=== PATIENT | female | born 1940 ===

== ENCOUNTER 2017-05-08 07:27 | Observation (INO) | payer MEDICARE ==
[2017-05-08] MEDS ORDERED: Morphine 4 MG/ML VIAL ONE (08:08)
[2017-05-08 08:15] LABS: BASO % 0.5 % (0.0-2.0); EOS # 0.2 K/uL (0.0-0.7); EOS % 3.4 % (0.0-4.0); HEMATOCRIT 35.3 % (34.0-47.0); LYMPH % 27.5 % (20.0-40.0); MEAN CELL VOLUME 91.6 fL (81.0-99.0); MEAN CORPUSCULAR HEMOGLOBIN 30.1 pg (27.0-31.0); MEAN CORPUSCULAR HGB CONC 32.9 g/dL (33.0-37.0); MEAN PLATELET VOLUME 8.1 fL (7.2-11.7); MONO # 0.4 K/uL (0.0-0.8); MONO % 5.5 % (0.0-10.0); RED CELL DISTRIBUTION WIDTH 13.5 % (11.5-14.5); WHITE BLOOD COUNT 7.2 K/uL (4.8-10.8)
[2017-05-08 08:28] LABS: PARTIAL THROMBOPLASTIN TIME 30 SECONDS (21-34)
[2017-05-08 08:30] LABS: CHLORIDE 102 mmol/L (98-107); SODIUM 139 mmol/L (132-148)
[2017-05-08 08:31] LABS: POTASSIUM 3.6 mmol/L (3.6-5.2)
[2017-05-08 08:33] LABS: ALB/GLOB RATIO 1.2 (1.0-2.1); ALKALINE PHOSPHATASE 126 U/L (38-126); ALT/SGPT 14 U/L (9-52); AST/SGOT 18 U/L (14-36); BILIRUBIN,TOTAL 0.9 mg/dL (0.2-1.3); BLOOD UREA NITROGEN 20 mg/dL (7-17); CALCIUM 8.6 mg/dl (8.6-10.4); CARBON DIOXIDE 26 mmol/L (22-30); GFR AFRICAN-AMERICAN > 60; GLUCOSE,RANDOM 92 mg/dL (65-105); TOTAL PROTEIN 6.8 g/dL (6.3-8.3)
--- NOTE | 2017-05-08 09:05 | C.PDOC ---
History Of Present Illness 77 yr old female presents to the ER with complaints of chest pain, SOB and sensations of choking intermittently for the past 1 week. Patient states the SOB started few days ago. Patient is accompanied by [id number], who states about a 1 week ago the patient was chocking on food when someone did the heimlich maneuver and since then the patient has developed anterior chest pain, pain with breathing and can't sleep due to the pain. Patient denies fever, chills, nausea, vomiting, abdominal pain, neck pain, back pain, weakness or numbness. Time Seen by Provider: 05/08/17 07:50 Chief Complaint (Nursing): Chest Pain History Per: Patient, Family (Daughter In Law ) History/Exam Limitations: no limitations Onset/Duration Of Symptoms: Days (1 week) Past Medical History Reviewed: Historical Data, Nursing Documentation, Vital Signs Vital Signs: Last Vital Signs Temp 98.1 F 05/08/17 16:01 Pulse 62 05/08/17 16:01 Resp 20 05/08/17 16:01 BP 131/78 05/08/17 16:01 Pulse Ox 95 05/08/17 16:01 - Medical History PMH: HTN, Hypothyroidism Family History: States: No Known Family Hx - Social History Hx Alcohol Use: Yes Hx Substance Use: No - Immunization History Hx Tetanus Toxoid Vaccination: No Hx Influenza Vaccination: No Hx Pneumococcal Vaccination: No Review Of Systems Except As Marked, All Systems Reviewed And Found Negative. Constitutional: Positive for: Other ((+) Choking sensation ). Negative for: Fever, Chills Cardiovascular: Positive for: Chest Pain Respiratory: Positive for: Shortness of Breath Gastrointestinal: Negative for: Nausea, Vomiting, Abdominal Pain Musculoskeletal: Negative for: Neck Pain, Back Pain Neurological: Negative for: Weakness, Numbness Physical Exam - Physical Exam Appears: Well, Non-toxic, No Acute Distress Skin: Warm, Dry, No Rash Head: Atraumatic, Normacephalic Eye(s): bilateral: PERRL, EOMI Throat: Normal, No Erythema, No Exudate, No Drooling Neck: Normal, Normal ROM, Supple Chest: Symmetrical, Tenderness (Mildly tender ) Cardiovascular: Rhythm Regular, No Murmur Respiratory: Decreased Breath Sounds (Bilateral bases ), No Rales, No Wheezing Gastrointestinal/Abdominal: Normal Exam, Soft, No Tenderness, No Guarding, No Rebound Extremity: Normal ROM, No Swelling Neurological/Psych: Oriented x3, Normal Speech, Normal Motor ED Course And Treatment - Laboratory Results Result Diagrams: 05/08/17 08:08 05/08/17 08:08 ECG: Interpreted By Me, Viewed By Me ECG Rhythm: Sinus Rhythm ECG Interpretation: Normal Rate From EC (BPM) O2 Sat by Pulse Oximetry: 97 (RA) Pulse Ox Interpretation: Normal - Other Rad CXR X-Ray: Viewed By Me, Read By Radiologist Interpretation: PROCEDURE: CHEST RADIOGRAPH, 1 VIEW. HISTORY: SOB, CP. COMPARISON: None available. FINDINGS: LUNGS: Mild venous congestion. Patchy bibasilar airspace opacities. Upper lobe granulomatous changes. PLEURA: As above. CARDIOVASCULAR: Tortuous ectatic aorta. Calcification at the aortic knob. Mild cardiomegaly. OSSEOUS STRUCTURES: No significant abnormalities. VISUALIZED UPPER ABDOMEN: Normal. OTHER FINDINGS: None. IMPRESSION: Mild venous congestion. Patchy bibasilar airspace opacities. Upper lobe granulomatous changes. Progress Note: Case was d/w pt's PMD Jeaneth Queen who requested to put patient to tele for observation on the Hospitalist service. Case was d/w Hospitalist who accepted patient to tele for observation. 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 - Scribe Statement The provider has reviewed the documentation as recorded by the Scribe Madina Brizuela All medical record entries made by the Scribe were at my direction and personally dictated by me. I have reviewed the chart and agree that the record accurately reflects my personal performance of the history, physical exam, medical decision making, and the department course for this patient. I have also personally directed, reviewed, and agree with the discharge instructions and disposition. Decision To Admit - Pt Status Changed To: Hospital Disposition Of: Observation - . Bed Request Type: Telemetry Admitting Physician: Christina Sofia Patient Diagnosis: Chest pain, SOB (shortness of breath)
[2017-05-08 09:20] LABS: RBC URINE < 1 /hpf (0-3); URINE BACTERIA RARE (<OCC); URINE BILIRUBIN NEGATIVE (NEGATIVE); URINE BLOOD NEGATIVE (NEGATIVE); URINE COLOR Straw (YELLOW); URINE GLUCOSE (UA) NORMAL (Normal); URINE KETONE NEGATIVE (NEGATIVE); URINE LEUKOCYTE ESTERASE 2+ Leu/uL (Negative); URINE PROTEIN NEGATIVE (NEGATIVE); URINE UROBILINOGEN NORMAL mg/dL (0.2-1.0)
[2017-05-08 09:22] LABS: WBC URINE 5 /hpf (0-5)
--- NOTE | 2017-05-08 09:36 | RAD ---
PROCEDURE: CHEST RADIOGRAPH, 1 VIEW HISTORY: SOB, CP COMPARISON: None available. FINDINGS: LUNGS: Mild venous congestion. Patchy bibasilar airspace opacities. Upper lobe granulomatous changes. PLEURA: As above. CARDIOVASCULAR: Tortuous ectatic aorta. Calcification at the aortic knob. Mild cardiomegaly. OSSEOUS STRUCTURES: No significant abnormalities. VISUALIZED UPPER ABDOMEN: Normal. OTHER FINDINGS: None. IMPRESSION: Mild venous congestion. Patchy bibasilar airspace opacities. Upper lobe granulomatous changes.
--- NOTE | 2017-05-08 11:45 | CP.PCM.HP ---
<Kennedi Hartley - Last Filed: 05/08/17 12:21> History of Present Illness - History of Present Illness History of Present Illness: CC: "my ribs hurt" HPI: Patient is a 77 year old female with PMHx of HTN, hypothyroidism, and unknown pulmonary disease presenting for rib pain, chest pain and aspiration. All translation is through patient's [id number]. Patient says she began choking on water on Friday. She kept coughing after swallowing the water. Her son-in-law gave her the heimlich. Ever since then patient has had difficulty swallowing water and also rice. Patient has no trouble swallowing other liquids and other foods. Since then patient has been coughing up white to yellowish phlegm frequently. Patient's [id number] says the patient has had subjective fever all week. Patient says she has had low rib pain since getting the heimlich maneuver. Patient's daughter in law gave her Naprosyn 500mg PO on Friday which did help the pain but patient did not want to continue taking it. Patient says she began having slight headache, difficulty hearing and left ear pain over the weekend. Patient also reports slight headache and blurry vision since Friday. Patient began experience sternal chest pain radiating into both arms yesterday while walking. Pain is associated with SOB. Patient denies diaphoresis and heart burn. Patient also reports not having a bowel movement for 3 days and associated slight back pain. Patient denies dysuria, rashes, bleeding. Patient was supposed to see an ENT doctor at 1pm today. PMD: Dr. Foley Allergies: NKDA PMHx: HTN, hypothyroidism, unknown lung problem Medications: inhaler of unknown name,levothyroxine 88mcg PO daily, losartan 50mg PO daily PSHx: umbilical hernia repair one year ago, R leg varicose vein surgery 1 year ago, cholecystectomy Family History: denies CAD, stroke, DM, hyperlipidemia; Father - Lung CA Social Hx: Denies smoking, drinks 1 beer at parties, denies illicit drug use, lives with daughter Present on Admission - Present on Admission Any Indicators Present on Admission: No History of DVT/PE: No History of Uncontrolled Diabetes: No Review of Systems - Constitutional Constitutional: Fever, Weakness. absent: Chills - EENT Eyes: Blurred Vision Ears: Ear Pain Nose/Mouth/Throat: Post Nasal Drip - Cardiovascular Cardiovascular: Chest Pain, Dyspnea, Pain Radiating to Arm/Neck/Jaw, Radiating Pain. absent: Diaphoresis, Lightheadedness, Palpitations, Pedal Edema, Rapid Heart Rate - Respiratory Respiratory: Cough, Dyspnea, Excessive Mucous Production, Change in Mucous Color , Pain with Coughing. absent: Wheezing, Snoring - Gastrointestinal Gastrointestinal: Constipation. absent: Abdominal Pain, Diarrhea, Heartburn, Nausea, Vomiting - Genitourinary Genitourinary: absent: Difficulty Urinating, Dysuria - Musculoskeletal Musculoskeletal: Back Pain - Integumentary Integumentary: absent: Rash - Neurological Neurological: Headaches. absent: Dizziness - Endocrine Endocrine: absent: Fatigue, Palpitations - Hematologic/Lymphatic Hematologic: absent: Easy Bleeding, Easy Bruising Past Patient History - Past Medical History & Family History Past Medical History?: Yes Pertinent Family History: denies CAD, stroke, DM, hyperlipidemia; Father - Lung CA - Past Social History Smoking Status: Never Smoked Alcohol: Occasional Drugs: Denies Home Situation {Lives}: With Family - CARDIAC Hx Hypertension: Yes - ENDOCRINE/METABOLIC Hx Hypothyroidism: Yes - PSYCHIATRIC Hx Substance Use: No - SURGICAL HISTORY Hx Surgeries: Yes Hx Herniorrhaphy: Yes (Umbilical) Other/Comment: rt. leg varicose vein surgery yesterday - ANESTHESIA Hx Anesthesia: Yes Hx Anesthesia Reactions: No Meds Allergies/Adverse Reactions: Allergies Allergy/AdvReac Type Severity Reaction Status Date / Time No Known Allergies Allergy Verified 05/08/17 07:44 Physical Exam - Constitutional Appears: Non-toxic, No Acute Distress - Head Exam Head Exam: NORMAL INSPECTION - Eye Exam Eye Exam: EOMI - ENT Exam ENT Exam: Mucous Membranes Moist Additional comments: right tonsil larger than left tonsil - Neck Exam Neck exam: Negative for: Lymphadenopathy - Respiratory Exam Respiratory Exam: Chest Wall Tenderness. absent: Accessory Muscle Use, Rales, Rhonchi, Wheezes, Respiratory Distress Additional comments: bibasilar coarse breath sounds - Cardiovascular Exam Cardiovascular Exam: REGULAR RHYTHM, +S1, +S2. absent: Gallop, Rubs, Systolic Murmur - GI/Abdominal Exam GI & Abdominal Exam: Normal Bowel Sounds, Soft. absent: Distended, Firm, Tenderness - Extremities Exam Extremities exam: Positive for: normal capillary refill, pedal pulses present. Negative for: pedal edema - Neurological Exam Neurological exam: Alert, Oriented x3 - Psychiatric Exam Psychiatric exam: Normal Affect, Normal Mood - Skin Skin Exam: Normal Color, Warm Results - Vital Signs Recent Vital Signs: Last Vital Signs Temp 97.8 F 05/08/17 07:41 Pulse 54 L 05/08/17 10:24 Resp 16 05/08/17 10:24 BP 122/93 H 05/08/17 10:24 Pulse Ox 97 05/08/17 10:47 - Labs Result Diagrams: 05/08/17 08:08 05/08/17 08:08 Labs: Laboratory Results - last 24 hr 05/08/17 05/08/17 05/08/17 08:08 08:08 08:08 WBC 7.2 RBC 3.86 Hgb 11.6 Hct 35.3 MCV 91.6 MCH 30.1 MCHC 32.9 L RDW 13.5 Plt Count 268 MPV 8.1 Neut % (Auto) 63.1 Lymph % (Auto) 27.5 [place] % (Auto) 5.5 Eos % (Auto) 3.4 Baso % (Auto) 0.5 Neut # 4.5 Lymph # 2.0 [place] # 0.4 Eos # 0.2 Baso # 0.0 PT 10.7 INR 1.0 APTT 30 D-Dimer, Quantitative < 200 Sodium 139 Potassium 3.6 Chloride 102 Carbon Dioxide 26 Anion Gap 14 BUN 20 H Creatinine 0.8 Est GFR ( Amer) > 60 Est GFR (Non-Af Amer) > 60 Random Glucose 92 Calcium 8.6 Total Bilirubin 0.9 AST 18 ALT 14 Alkaline Phosphatase 126 D Total Creatine Kinase 48 CK-MB (Mass) 0.77 Troponin I < 0.0120 Total Protein 6.8 Albumin 3.7 Globulin 3.0 Albumin/Globulin Ratio 1.2 Urine Color Urine Clarity Urine pH Ur Specific [place] Urine Protein Urine Glucose (UA) Urine Ketones Urine Blood Urine Nitrate Urine Bilirubin Urine Urobilinogen Ur Leukocyte Esterase Urine WBC (Auto) Urine RBC (Auto) Ur Squamous Epith Cells Urine Bacteria 05/08/17 09:11 WBC RBC Hgb Hct MCV MCH MCHC RDW Plt Count MPV Neut % (Auto) Lymph % (Auto) [place] % (Auto) Eos % (Auto) Baso % (Auto) Neut # Lymph # [place] # Eos # Baso # PT INR APTT D-Dimer, Quantitative Sodium Potassium Chloride Carbon Dioxide Anion Gap BUN Creatinine Est GFR ( Amer) Est GFR (Non-Af Amer) Random Glucose Calcium Total Bilirubin AST ALT Alkaline Phosphatase Total Creatine Kinase CK-MB (Mass) Troponin I Total Protein Albumin Globulin Albumin/Globulin Ratio Urine Color Straw Urine Clarity Clear Urine pH 7.0 Ur Specific [place] 1.006 Urine Protein Negative Urine Glucose (UA) Normal Urine Ketones Negative Urine Blood Negative Urine Nitrate Negative Urine Bilirubin Negative Urine Urobilinogen Normal Ur Leukocyte Esterase 2+ H Urine WBC (Auto) 5 Urine RBC (Auto) < 1 Ur Squamous Epith Cells 1 Urine Bacteria Rare Assessment & Plan - Assessment and Plan (Free Text) Assessment: Chest Pain IVA neg x1 F/U ROMIs with EKGs at 3pm and 9pm ASA 81mg PO daily Crestor 10mg PO HS F/U lipid panel, HgbA1C, TSH Costochondritis Toradol 30mg IVP once Toradol 15mg IVP Q6H PRN pain Aspiration Swallow evaluation Aspiration precautions CT of soft tissues of neck ENT consult - Dr. Valles - f/u recs Pneumonia likely aspiration pneumonia CXR - mild venous congestion; patchy bibasilar air space opacities; upper lobe granulomatous changes F/U mycoplasma IgM, Legionella Ag, and S. Pneumo Ag Zosyn 3.375 gm IVPB Q6 Monitor for fever Monitor CBC Constipation Milk of Magnesia once Colace 100mg PO BID HTN Continue home Losartan 50mg PO daily Hypothyroidism Continue home levothyroxine 88mcg PO daily F/U TSH Asthma? Duonebs INH RQ6 PRN SOB F/U with [id number] about name of inhaler Prophylaxis Protonix 40mg PO daily Heparin 5000U SC Q8 SCDs <Chris Kaufman M - Last Filed: 05/08/17 15:23> Results - Vital Signs Recent Vital Signs: Last Vital Signs Temp 98.1 F 05/08/17 12:29 Pulse 60 05/08/17 12:29 Resp 18 05/08/17 12:29 BP 169/73 H 05/08/17 12:29 Pulse Ox 98 05/08/17 12:29 - Labs Result Diagrams: 05/08/17 08:08 05/08/17 08:08 Attending/Attestation - Attestation I have personally seen and examined this patient.: Yes I have fully participated in the care of the patient.: Yes I have reviewed all pertinent clinical information: Yes Notes (Text): 05/08/17 15:21 Patient was seen and examined at bedside with the resident at the time of admission We will start treatment for pneumonia. We will also request ENT evaluation for difficulty swallowing and enlarged tonsils We will obtain a CT scan of soft tissue of the neck I discussed the plan of care with the resident and agree with the above history and physical and assessment/plan by the resident.
[2017-05-08] MEDS ORDERED: Magnesium Hydroxide Susp 30 ml UD PO ONE (12:30)
[2017-05-08] MEDS ORDERED: Albuterol-Ipratrop 3 mg / 0.5 (3 ml) UD INH PRN (12:32)
[2017-05-08] MEDS: Pantoprazole 40 mg EC Tab PO SCH (14:17)
[2017-05-08] MEDS: Piperacillin/Tazobact 3.375 GM in Sodium Chloride 100 ML IVPB SCH ×3 (14:20→23:53)
--- NOTE | 2017-05-08 23:50 | OP ---
PROCEDURE DATE: 05/08/2017 Dysphagia. PROCEDURE: Flexible laryngoscopy. SIGNIFICANT FINDINGS: Arytenoid erythema. DESCRIPTION OF PROCEDURE: The patient was placed in a seated position. Flexible laryngoscope was in serted into the nasal cavity, passed through the nasopharynx, oropharynx, hypopharynx. The pharyngea l damico, base of tongue, vallecula, epiglottis, AE folds, false cords, true cords, piriform sinuses, arytenoids were brought into view. Arytenoid erythema was noted on both sides, mild in intensity. S cope was removed. The patient tolerated the procedure well. The patient assessed as having gastroes ophageal reflux disease. I recommend a gastroenterology consultation. Jacky Valles MD cc: [id number] TT: 05/08/2017 23:49:52 wv
[2017-05-09] MEDS: Piperacillin/Tazobact 3.375 GM in Sodium Chloride 100 ML IVPB SCH ×2 (05:45→12:21)
[2017-05-09] MEDS ORDERED: Levothyroxine 88 MCG TAB PO SCH (06:30)
[2017-05-09 07:36] LABS: BASO % 0.6 % (0.0-2.0); EOS # 0.4 K/uL (0.0-0.7); HEMATOCRIT 37.9 % (34.0-47.0); LYMPH # 1.6 K/uL (1.0-4.3); LYMPH % 22.4 % (20.0-40.0); MEAN CELL VOLUME 92.8 fL (81.0-99.0); MEAN CORPUSCULAR HEMOGLOBIN 30.2 pg (27.0-31.0); MEAN CORPUSCULAR HGB CONC 32.5 g/dL (33.0-37.0); MEAN PLATELET VOLUME 8.7 fL (7.2-11.7); MONO # 0.4 K/uL (0.0-0.8); MONO % 5.9 % (0.0-10.0); RED CELL DISTRIBUTION WIDTH 13.6 % (11.5-14.5); WHITE BLOOD COUNT 7.3 K/uL (4.8-10.8)
[2017-05-09 07:52] LABS: CHLORIDE 102 mmol/L (98-107)
[2017-05-09 07:53] LABS: POTASSIUM 3.8 mmol/L (3.6-5.2); SODIUM 140 mmol/L (132-148)
[2017-05-09 07:55] LABS: BILIRUBIN,TOTAL 0.6 mg/dL (0.2-1.3); CARBON DIOXIDE 28 mmol/L (22-30); CHOLESTEROL 198 mg/dL (0-199); GFR AFRICAN-AMERICAN > 60
[2017-05-09 07:56] LABS: ALKALINE PHOSPHATASE 128 U/L (38-126); ALT/SGPT 19 U/L (9-52); AST/SGOT 19 U/L (14-36); BLOOD UREA NITROGEN 19 mg/dL (7-17); CALCIUM 8.4 mg/dl (8.6-10.4); GLUCOSE,RANDOM 93 mg/dL (65-105); TOTAL PROTEIN 6.8 g/dL (6.3-8.3)
[2017-05-09 08:23] LABS: THYROID STIMULATING HORMONE 0.33 mIU/L (0.46-4.68)
--- NOTE | 2017-05-09 10:11 | CT ---
PROCEDURE: CT scan of the neck dated 05/08/2017. COMPARISON: No prior study available for comparison TECHNIQUE: Radiation dose: DLP 353.33 mGy-cm This CT exam was performed using one or more of the following dose reduction techniques: Automated exposure control, adjustment of the mA and/or kV according to patient size, and/or use of iterative reconstruction technique. FINDINGS: Current study reveals no large cervical masses or collections. There are multiple small nonspecific bilateral cervical lymph nodes. None of these lymph nodes appear pathologically enlarged. The visualized parotid and submandibular glands appear grossly unremarkable without masses collections or calcifications. No evidence of abnormal calcifications within the distribution of the expected distribution of the parotid or submandibular ducts. The thyroid gland is diminutive in overall size/volume. Note that the some crossing streak and beam hardening artifact also partially obscures the thyroid gland. Evaluation of the cervical arterial vasculature slightly limited due to the lack of circulating intravenous contrast material. Some very minor calcified atherosclerotic plaque seen along both carotid bifurcations without evidence to suggest hemodynamically significant stenosis. The palatine tonsils are somewhat prominent with tiny calcification in the right peritonsillar region likely postinflammatory. No evidence of peritonsillar abscess. There is some minor asymmetry of the vallecula which is likely due to some encroachment of lingual tonsils and probably some residual/retained secretion in the right aspect of the vallecula. There is also a tiny calcification within the right aspect of the vallecular likely postinflammatory in nature as well. Mild asymmetry of the pyriform sinuses and aryepiglottic folds. The left pyriform sinus is smaller than the right side. This could also be due to some residual and or retained secretion. Possibility of mucosal lesion cannot be excluded. Direct visualization may be prudent for further evaluation. The central airways are midline. No endoluminal lesions are identified. Lung apices are clear. There are multiple on all with small rounded lucencies scattered throughout the cervical spine nonspecific though could represent areas of demineralization. Clinical correlation recommended as the possibility of an infiltrative marrow disease process the including but not limited to multiple myeloma should be excluded. Assess slight straightening of the normal cervical lordosis which could be due to patient positioning gantry. No 3 minimal anterior subluxation C7 over T1. Impression: No evidence of peritonsillar abscess though there is slight prominence of the palatine tonsils. Few tiny calcifications seen in the right palatine tonsil and the region of the right lingular tonsil region likely postinflammatory. Mild asymmetry of the lingula which could be due to encroachment of lingual tonsils on the right side as well as on some residual and or retained secretion. In addition, there is also asymmetry of the pyriform sinuses. Findings are likely due to some residual and or retained secretion as well however direct visualization may be prudent for further evaluation. There are scattered multiple small rounded lucencies within the cervical spine nonspecific no could represent focal areas of demineralization. Clinical correlation recommended recommended to exclude the possibility of an infiltrative marrow disease process including but not limited to multiple myeloma.
[2017-05-09] MEDS: Pantoprazole 40 mg EC Tab PO SCH (10:23)
[2017-05-09] MEDS ORDERED: Magnesium Oxide 400 mg Tab UD PO ONE (12:30)
[2017-05-09 15:48] VITALS: BP 129/78; RESP 20; TEMP 98.3; O2SAT 96
--- NOTE | 2017-05-09 16:56 | CP.PCM.DIS ---
Provider - Provider Date of Admission: 05/08/17 10:45 Attending physician: Chris Kaufman MD Primary care physician: Dr. Foley Consults: Dr. Valles - ENT Time Spent in preparation of Discharge (in minutes): 35 Diagnosis - Discharge Diagnosis (1) Chest pain Status: Acute Comment: Not cardiac in nature. Likely MSkeletal. f/u PCP. Should get GI workup outpatient Hospital Course - Lab Results Lab Results: Most Recent Lab Values WBC 7.3 K/uL (4.8-10.8) 05/09/17 07:18 RBC 4.09 Mil/uL (3.80-5.20) 05/09/17 07:18 Hgb 12.3 g/dL (11.0-16.0) 05/09/17 07:18 Hct 37.9 % (34.0-47.0) 05/09/17 07:18 MCV 92.8 fL (81.0-99.0) 05/09/17 07:18 MCH 30.2 pg (27.0-31.0) 05/09/17 07:18 MCHC 32.5 g/dL (33.0-37.0) L 05/09/17 07:18 RDW 13.6 % (11.5-14.5) 05/09/17 07:18 Plt Count 283 K/uL (130-400) 05/09/17 07:18 MPV 8.7 fL (7.2-11.7) 05/09/17 07:18 Neut % (Auto) 66.1 % (50.0-75.0) 05/09/17 07:18 Lymph % (Auto) 22.4 % (20.0-40.0) 05/09/17 07:18 [place] % (Auto) 5.9 % (0.0-10.0) 05/09/17 07:18 Eos % (Auto) 5.0 % (0.0-4.0) H 05/09/17 07:18 Baso % (Auto) 0.6 % (0.0-2.0) 05/09/17 07:18 Neut # 4.8 K/uL (1.8-7.0) 05/09/17 07:18 Lymph # 1.6 K/uL (1.0-4.3) 05/09/17 07:18 [place] # 0.4 K/uL (0.0-0.8) 05/09/17 07:18 Eos # 0.4 K/uL (0.0-0.7) 05/09/17 07:18 Baso # 0.0 K/uL (0.0-0.2) 05/09/17 07:18 PT 10.7 SECONDS (9.7-12.2) 05/08/17 08:08 INR 1.0 05/08/17 08:08 APTT 30 SECONDS (21-34) 05/08/17 08:08 D-Dimer, Quantitative < 200 ng/mlDDU (0-243) 05/08/17 08:08 Sodium 140 mmol/L (132-148) 05/09/17 07:18 Potassium 3.8 mmol/L (3.6-5.2) 05/09/17 07:18 Chloride 102 mmol/L (98-107) 05/09/17 07:18 Carbon Dioxide 28 mmol/L (22-30) 05/09/17 07:18 Anion Gap 13 (10-20) 05/09/17 07:18 BUN 19 mg/dL (7-17) H 05/09/17 07:18 Creatinine 0.9 MG/DL (0.7-1.2) 05/09/17 07:18 Est GFR ( Amer) > 60 05/09/17 07:18 Est GFR (Non-Af Amer) > 60 05/09/17 07:18 Random Glucose 93 mg/dL (65-105) 05/09/17 07:18 Hemoglobin A1c 5.7 % (4.2-6.5) 05/09/17 07:18 Calcium 8.4 mg/dl (8.6-10.4) L 05/09/17 07:18 Total Bilirubin 0.6 mg/dL (0.2-1.3) 05/09/17 07:18 AST 19 U/L (14-36) 05/09/17 07:18 ALT 19 U/L (9-52) 05/09/17 07:18 Alkaline Phosphatase 128 U/L (38-126) H 05/09/17 07:18 Total Creatine Kinase 43 U/L (30-135) 05/09/17 00:40 CK-MB (Mass) 0.57 ng/mL (0.0-3.38) 05/09/17 00:40 Troponin I < 0.0120 ng/mL (0.00-0.120) 05/08/17 08:08 Troponin I, Quant < 0.0120 ng/mL (0.00-0.120) 05/09/17 00:40 Total Protein 6.8 g/dL (6.3-8.3) 05/09/17 07:18 Albumin 3.5 g/dL (3.5-5.0) 05/09/17 07:18 Globulin 3.3 gm/dL (2.2-3.9) 05/09/17 07:18 Albumin/Globulin Ratio 1.0 (1.0-2.1) 05/09/17 07:18 Triglycerides 99 mg/dL (0-149) D 05/09/17 07:18 Cholesterol 198 mg/dL (0-199) 05/09/17 07:18 LDL Cholesterol Direct 110 mg/dL (0-129) 05/09/17 07:18 HDL Cholesterol 56 mg/dL (30-70) 05/09/17 07:18 TSH 3rd Generation 0.33 mIU/L (0.46-4.68) L 05/09/17 07:18 Urine Color Straw (YELLOW) 05/08/17 09:11 Urine Clarity Clear (Clear) 05/08/17 09:11 Urine pH 7.0 (5.0-8.0) 05/08/17 09:11 Ur Specific [place] 1.006 (1.003-1.030) 05/08/17 09:11 Urine Protein Negative mg/dL (NEGATIVE) 05/08/17 09:11 Urine Glucose (UA) Normal mg/dL (Normal) 05/08/17 09:11 Urine Ketones Negative mg/dL (NEGATIVE) 05/08/17 09:11 Urine Blood Negative (NEGATIVE) 05/08/17 09:11 Urine Nitrate Negative (NEGATIVE) 05/08/17 09:11 Urine Bilirubin Negative (NEGATIVE) 05/08/17 09:11 Urine Urobilinogen Normal mg/dL (0.2-1.0) 05/08/17 09:11 Ur Leukocyte Esterase 2+ Kemal/uL (Negative) H 05/08/17 09:11 Urine WBC (Auto) 5 /hpf (0-5) 05/08/17 09:11 Urine RBC (Auto) < 1 /hpf (0-3) 05/08/17 09:11 Ur Squamous Epith Cells 1 /hpf (0-5) 05/08/17 09:11 Urine Bacteria Rare (<OCC) 05/08/17 09:11 Ur L.pneumophila Ag Negative (NEGATIVE) 05/08/17 12:14 - Hospital Course Hospital Course: On admission: Patient is a 77 year old female with PMHx of HTN, hypothyroidism, and unknown pulmonary disease presenting for rib pain, chest pain and aspiration. All translation is through patient's easkgymo-mg-hop. Patient says she began choking on water on Friday. She kept coughing after swallowing the water. Her son-in-law gave her the heimlich. Ever since then patient has had difficulty swallowing water and also rice. Patient has no trouble swallowing other liquids and other foods. Since then patient has been coughing up white to yellowish phlegm frequently. Patient's [id number] says the patient has had subjective fever all week. Patient says she has had low rib pain since getting the heimlich maneuver. Patient's daughter in law gave her Naprosyn 500mg PO on Friday which did help the pain but patient did not want to continue taking it. Patient says she began having slight headache, difficulty hearing and left ear pain over the weekend. Patient also reports slight headache and blurry vision since Friday. Patient began experience sternal chest pain radiating into both arms yesterday while walking. Pain is associated with SOB. Patient denies diaphoresis and heart burn. Patient also reports not having a bowel movement for 3 days and associated slight back pain. Patient denies dysuria, rashes, bleeding. During hospital stay: Swallow eval was performed and the patient passed. She was given a regular diet and tolerating. She did not have episodes of choking while in the hospital. Dr. Valles was consulted and performed flexible laryngoscopy which showed arytenoid erythema. No masses or acute lesions were appreciated. He recommended GI consult which can be done outpatient. Soft Tissue neck CT showed no evidence of abscess. few tiny calcifications seen in right palatine tonsil and region of the right lingular tonsil likely postimflammatory. Mild asymmetry of lingula. Scattered multiple small rounded lucencies within the cervical spine which could represent focal areas of dimeralization. His primary care physician was notified of these findings. CXR showed mild venous congestion; patchy bibasilar air space opacities; upper lobe granulomatous changes. No evidence of aspiration pneumonia. Patient was given Zosyn IV. She was afebrile and did not have a white count. Urine and blood cultures were negative. Labs were within normal limits. Serial troponin were done and were negative. EKG showed no acute changes. Patient was also given medications for constipation. Patient stable for discharge home. She is to follow up with her primary care Dr. Flores within one week of discharge for post hospital care. She should resume her home medications and also take the following new medication: Protonix 40mg one by mouth daily. Patient is to return to the emergency room if symptoms return. All instruction explained to the patient and she agrees. Discharge Exam - Head Exam Head Exam: NORMAL INSPECTION - Eye Exam Eye Exam: EOMI, Normal appearance, PERRL Pupil Exam: NORMAL ACCOMODATION - ENT Exam ENT Exam: Mucous Membranes Moist - Respiratory Exam Respiratory Exam: Clear to PA & Lateral, NORMAL BREATHING PATTERN, UNREMARKABLE. absent: Respiratory Distress - Cardiovascular Exam Cardiovascular Exam: REGULAR RHYTHM, +S1, +S2 - GI/Abdominal Exam GI & Abdominal Exam: Normal Bowel Sounds, Soft. absent: Distended, Firm, Guarding, Tenderness - Extremities Exam Extremities exam: normal inspection - Back Exam Back exam: NORMAL INSPECTION. absent: CVA tenderness (L), CVA tenderness (R), paraspinal tenderness - Neurological Exam Neurological exam: Alert, Normal Gait, Oriented x3 - Psychiatric Exam Psychiatric exam: Normal Affect, Normal Mood - Skin Skin Exam: Dry, Intact, Normal Color, Warm Discharge Plan - Discharge Medications Prescriptions: Pantoprazole [Protonix EC Tab] 40 mg PO DAILY #30 ect - Follow Up Plan Condition: FAIR Disposition: HOME/ ROUTINE Instructions: Chest Pain (DC), Viral Pneumonia (DC), Gastroesophageal Reflux Disease (DC), Dyspnea (GEN) Additional Instructions: Patient stable for discharge home. She is to follow up with her primary care Dr. Flores within one week of discharge for post hospital care. She should resume her home medications and also take the following new medication: Protonix 40mg one by mouth daily. Patient is to take Tylenol over the counter for pain as needed. Patient is to return to the emergency room if symptoms return. All instructions explained to the patient and she agrees. Referrals: Jeaneth Flores DO [Staff Provider] - Jude Devine MD [Staff Provider] -
--- NOTE | 2017-05-09 17:41 | CARD ---
APPROVED REPORT EKG Measurement Heart [id number] <Conclusion> Normal sinus rhythm Normal ECG
--- NOTE | 2017-05-09 17:48 | CARD ---
APPROVED REPORT EKG Measurement Heart [id number] RI 152P54 [id number] <Conclusion> Normal sinus rhythm Normal ECG
[2017-05-09 18:57] VITALS: PULSE 78
--- NOTE | 2017-05-11 02:08 | CARD ---
APPROVED REPORT EKG Measurement Heart [id number] NE [id number] <Conclusion> Normal sinus rhythm Cannot rule out Anterior infarct, age undetermined Abnormal ECG
== END 2017-05-09 18:15 | disposition home or self-care (01) ==
LOC: C.ER 07:27 → C.5T 10:45
PROVIDERS: ADMIT Internal Medicine; ATTEND Internal Medicine
DX: M94.0 Chondrocostal junction syndrome [Tietze] (principal); K59.00 Constipation, unspecified; I10 Essential (primary) hypertension; E03.9 Hypothyroidism, unspecified
CPT/HCPCS: 31575; 36415; 70490; 71010; 80053; 80061; 81001; 82550; 82553; 83036; 84443; 84484; 85025; 85378; 85610; 85730; 86403; 86738; 87040; 87086; 87449; 92526; 92610; 93005; 96374; 97116; 97162; 99285; G0378; G8978; G8979; G8980; G8996; G8997; J1644; J1885; J2270; J2543; J7050

== ENCOUNTER 2018-09-08 16:56 | Emergency (ER) | payer MEDICARE ==
[2018-09-08 16:56] VITALS: BMI 27.3
--- NOTE | 2018-09-08 18:35 | C.PDOC ---
History Of Present Illness 78 y/o female, PMHx significant for HTN, hypothyroidism, and pulmonary fibrosis, presents to the ED complaining of recurrent SOB today. Patient has history of pulmonary fibrosis, on maintenance pump, and states she has been using other pump for exacerbation of SOB with no improvement at home. Now complaining of persistent SOB. Otherwise patient denies any fever, chest pain, cough, or palpitations. PMD Dr. Sandra Cote <Jojo Lopez - Last Filed: 09/08/18 19:12> [facility] and became short of breath. She has a history of lung disease and has inhalers that she uses at home. She obtained a steroid inhaler from her PMD which has run out. <Selma Alba - Last Filed: 09/08/18 21:18> History Per: Patient History/Exam Limitations: no limitations Onset/Duration Of Symptoms: Hrs Current Symptoms Are (Timing): Worse <Jojo Lopez - Last Filed: 09/08/18 19:12> <Selma Alba - Last Filed: 09/08/18 21:18> Time Seen by Provider: 09/08/18 18:08 Chief Complaint (Nursing): Shortness Of Breath Past Medical History Reviewed: Historical Data, Nursing Documentation, Vital Signs Vital Signs: Last Vital Signs Temp 98.4 F 09/08/18 17:18 Pulse 64 09/08/18 18:06 Resp 19 09/08/18 18:06 BP 126/59 L 09/08/18 18:06 Pulse Ox 99 09/08/18 18:06 - Medical History PMH: Arthritis, HTN, Hypercholesterolemia, Hyperthyroidism, Hypothyroidism, Peripheral Edema Surgical History: Cholecystectomy Denies: Pacemaker Family History: States: Unknown Family Hx - Social History Hx Alcohol Use: No Hx Substance Use: No - Immunization History Hx Tetanus Toxoid Vaccination: No Hx Influenza Vaccination: No Hx Pneumococcal Vaccination: No <Jojo Lopez - Last Filed: 09/08/18 19:12> Vital Signs: Last Vital Signs Temp 98.4 F 09/08/18 17:18 Pulse 88 09/08/18 20:12 Resp 20 09/08/18 20:12 BP 121/59 L 09/08/18 20:12 Pulse Ox 98 09/08/18 20:12 <Selma Alba - Last Filed: 09/08/18 21:18> Review Of Systems Except As Marked, All Systems Reviewed And Found Negative. Constitutional: Negative for: Fever, Chills Cardiovascular: Negative for: Chest Pain, Palpitations, Light Headedness Respiratory: Positive for: Shortness of Breath (persistent). Negative for: Cough Gastrointestinal: Negative for: Vomiting Neurological: Negative for: Weakness, Numbness, Dizziness <Jojo Lopez - Last Filed: 09/08/18 19:12> Physical Exam - Physical Exam Appears: Non-toxic, In Acute Distress (mild distress) Skin: Normal Color, Warm, Dry Head: Atraumatic, Normacephalic Eye(s): bilateral: Normal Inspection, PERRL, EOMI Oral Mucosa: Moist Neck: Normal ROM Chest: Symmetrical Cardiovascular: Rhythm Regular Respiratory: Rales (Diffuse fine crackles), Other (+retractions, tachypnea, speaking in full sentences) Gastrointestinal/Abdominal: Soft, No Tenderness, No Distention Extremity: Bilateral: Atraumatic, Normal Color And Temperature, Normal ROM Pulses: Left Dorsalis Pedis: Normal, Right Dorsalis Pedis: Normal Neurological/Psych: Oriented x3, Normal Speech <Jojo Lopez Last Filed: 09/08/18 19:12> ED Course And Treatment O2 Sat by Pulse Oximetry: 99 (RA) Pulse Ox Interpretation: Normal - Radiology CXR: Interpreted by Dc CXR Interpretation: Yes: No Acute Disease <Jojo Lopez Last Filed: 09/08/18 19:12> - Laboratory Results Result Diagrams: 09/08/18 20:09 09/08/18 20:09 Lab Interpretation: No Acute Changes ECG: Interpreted By Dc ECG Rhythm: Sinus Rhythm ECG Interpretation: Normal Reevaluation Time: 21:07 Reassessment Condition: Improved (Patient is comfortable and in no respiratory distress. Lungs are clear.) <Selma Alba - Last Filed: 09/08/18 21:18> Progress - Data Reviewed Data Reviewed: Lab, Diagnostic imaging, EKG, Old records <Jojo Lopez Last Filed: 09/08/18 19:12> Medical Decision Making Medical Decision Making: Impression: Persistent SOB, H/O pulmonary fibrosis Initial Plan: --Labs --EKG --Chest x-ray --Duoneb 3 ml INH --Solu-medrol 80 mg IVP --Reassess and dispo [address] Alba at shift change, pending labs and final disposition <Jojo Lopez - Last Filed: 09/08/18 19:12> Disposition - Disposition Disposition Time: 19:00 <Jojo Lopez - Last Filed: 09/08/18 19:12> Counseled Patient/Family Regarding: Studies Performed, Diagnosis, Need For Followup - Disposition Disposition Time: 21:17 <Selma Alba - Last Filed: 09/08/18 21:18> - Disposition Disposition: HOME/ ROUTINE Condition: IMPROVED Prescriptions: Methylprednisolone [Medrol Dose Pack (21 tabs)] 4 mg PO DAILY #21 mg Instructions: Shortness of Breath (Dyspnea), Interstitial Lung Disease Forms: [employer] (Finnish) Print Language: SWEDISH - Clinical Impression Clinical Impression: SOB (shortness of breath), Pulmonary fibrosis - Scribe Statement The provider has reviewed the documentation as recorded by the Bryce uPentes Provider Attestation: All medical record entries made by the Aishaiblisseth were at my direction and personally dictated by me. I have reviewed the chart and agree that the record accurately reflects my personal performance of the history, physical exam, medical decision making, and the department course for this patient. I have also personally directed, reviewed, and agree with the discharge instructions and disposition. <Jojo Lopez - Last Filed: 09/08/18 19:12> Physician Patient Turnover Patient Signed Over To: Selma Alba Handoff Comments: FU LABS, EKG, DISPO <JohnJojo - Last Filed: 09/08/18 19:12>
[2018-09-08] MEDS ORDERED: MethylPREDNISolone 40 mg Vial ONE (19:00)
[2018-09-08] MEDS ORDERED: Albuterol-Ipratrop 3 mg / 0.5 (3 ml) UD ONE (19:00)
--- NOTE | 2018-09-08 19:08 | RAD ---
HISTORY: SOB COMPARISON: Chest x-ray performed 05/08/17 TECHNIQUE: Chest, one view. FINDINGS: Examination limited by habitus. LUNGS: Left basilar atelectasis. Please note that chest x-ray has limited sensitivity for the detection of pulmonary masses. PLEURA: No significant pleural effusion identified. No definite pneumothorax . CARDIOVASCULAR: Ectatic aorta. Dense atherosclerotic calcifications. OSSEOUS STRUCTURES: Degenerative changes. VISUALIZED UPPER ABDOMEN: Unremarkable. OTHER FINDINGS: None. IMPRESSION: Left basilar atelectasis.
[2018-09-08] MEDS: Albuterol-Ipratrop 3 mg / 0.5 (3 ml) UD IH SCH (19:15)
[2018-09-08 20:13] LABS: BASO % 0.4 % (0.0-2.0); EOS # 0.1 K/uL (0.0-0.7); EOS % 0.7 % (0.0-4.0); HEMOGLOBIN 12.6 g/dL (11.0-16.0); LYMPH # 1.1 K/uL (1.0-4.3); LYMPH % 12.9 % (20.0-40.0); MEAN CORPUSCULAR HEMOGLOBIN 29.9 pg (27.0-31.0); MEAN CORPUSCULAR HGB CONC 33.5 g/dL (33.0-37.0); MEAN PLATELET VOLUME 9.6 fL (7.2-11.7); MONO # 0.4 K/uL (0.0-0.8); MONO % 4.2 % (0.0-10.0); NEUT # 6.8 K/uL (1.8-7.0); NEUT % 81.8 % (50.0-75.0); RBC 4.22 Mil/uL (3.80-5.20); WHITE BLOOD COUNT 8.4 K/uL (4.8-10.8)
[2018-09-08 20:16] LABS: MEAN CELL VOLUME 89.2 fL (81.0-99.0)
[2018-09-08 20:30] LABS: ALB/GLOB RATIO 1.4 (1.0-2.1); ALBUMIN 4.4 g/dL (3.5-5.0); ALT/SGPT 16 U/L (9-52); AST/SGOT 18 U/L (14-36); BLOOD UREA NITROGEN 21 mg/dL (7-17); CALCIUM 9.6 mg/dl (8.6-10.4); GFR NON-AFRICAN AMERICAN > 60
[2018-09-08 21:11] VITALS: BP 142/64; PULSE 93; RESP 18; TEMP 98.8; O2SAT 96
--- NOTE | 2018-09-09 16:07 | CARD ---
APPROVED REPORT Date of service: 09/08/2018 EKG Measurement Heart [id number] <Conclusion> Normal sinus rhythm Normal ECG
== END 2018-09-08 21:27 | disposition home or self-care (01) ==
LOC: C.ER 16:56
DX: J84.10 Pulmonary fibrosis, unspecified (principal); R06.02 Shortness of breath
CPT/HCPCS: 71045; 80053; 85025; 93005; 94150; 94640; 96374; 99285; J2930